=== PATIENT | male | born 1980 | race Caucasian/White ===

== ENCOUNTER 2017-05-01 05:23 | Emergency (ER) | payer OTHER ==
[~2017-05-01 05:23] MED LIST: ALPR-138 PO; BUPR-175 PO; METH5TAB PO
[2017-05-01 05:33] VITALS: BP 142/96; PULSE 88; RESP 16; O2SAT 96
[2017-05-01] MEDS ORDERED: XANA2TAB2 PO (05:39)
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
== END 2017-05-01 10:10 | disposition home or self-care (01) ==
LOC: NEPD 05:23
DX: F10.920 Alcohol use, unspecified with intoxication, uncomplicated (principal)
CPT/HCPCS: 99281